=== PATIENT | female | born 1980 ===

== ENCOUNTER 2025-09-25 10:23 | Outpatient (AMB) | payer OTHER, SELFPAY ==
--- NOTE | 2025-09-25 10:30 | MHC.PC.OV ---
Vital Signs 09/25/25 10:36 Height 5 ft 1 in Weight 120 lb BMI 22.7 BP 98/65 Blood Pressure Location Lt brachial Position Sitting Respiration 12 Pulse 69 Pulse Source Pulse Oximeter Temp 97.2 F Temp Source Oral Pulse Oximetry (%) 98 Oxygen Delivery Method Room Air Intake Visit Reasons: possible UTI Intake Note: New patient to establish care and patient also c/o frequency urination and patient has a negative uti from obgyn. Mounter Sousaphones Required: No Allergies No Known Allergies Allergy (Verified 09/25/25 10:58) Medication List - Last Reconciled 09/25/25 by ELIEZER Lundy No Known Home Meds Tobacco use date assessed: 09/25/25 Dental Screening Dental Screen Date: 09/25/25 Did you have a dental visit in the last 12 months?: Yes Did you have a dental problem in the last 6 months where you did not have access to dental care?: No Was dental information given to patient?: Patient has dentist HPI HPI Comments History of Present Illness Details 45-year-old female with subclinical hypothyroid, rosacea s/p c section Social: 2 children Boys, 9 (type 1 dm) and 11; [place] [facility] Maintenance: Colon Mammo 2024 DEXA PAP Tdap 2015 Flu declined 09/25/25 Specialists: [facility] History of Present Illness The patient is a 45-year-old female presenting to establish care and for evaluation of urinary frequency, fatigue, and facial dermatitis. no records Dr Valencia Jackson Urinary Frequency: - The patient reports a sudden onset of urinary frequency since this past summer, which she initially suspected was a UTI. - Symptoms include feeling a constant urge to urinate, passing small amounts of urine at times, and nocturia requiring her to get up approximately four times before falling asleep. - She denies dysuria, itching, discharge, incontinence, fever, chills, back pain, or hematuria. - A workup with her primer and powder canning leader was negative for a UTI. - She has a referral to a urologist but has not yet made an appointment. - The onset of symptoms coincided with a period of high stress from a new job interview process. - The patient notes that the urinary frequency has improved with behavioral modification at work, where she has been consciously trying to ignore the urge to void. Fatigue: - The patient complains of low energy, feeling that she should have more energy than she currently does. - She acknowledges multiple life stressors, including caring for a child with type 1 diabetes, work-related travel, and starting a new, high-demand job. - Blood work from 2022 with her previous provider, including CBC, ferritin, TSH, cortisol, B12, and thyroid antibodies, was reportedly normal. Dermatitis: - The patient developed new-onset dermatitis on her face during the summer, around the same time her urinary symptoms began. - She is under the care of a promotions producer and was given a cream (roflumilast) that was not covered by insurance. - An oral medication was prescribed but made her feel sick, leading to non-adherence. - The dermatitis has not resolved. History of Thyroid Evaluation: - Her previous provider, Dr. Birmingham, initiated thyroid medication despite her lab values being within the normal range. - She stopped taking the medication because it caused her heart to race and made her feel anxious. - She decided to seek a new provider due to feeling that the previous practice was excessive with monthly visits and constant blood work. Past Medical History - History of thyroid evaluation: Patient was previously treated for subclinical thyroid dysfunction with medication, which was discontinued due to side effects of palpitations and anxiety. - Contraception: IUD in place for approximately 8 years. - Family history: Younger son has type 1 diabetes with no other family history of the condition. - Allergies: No known drug allergies. Review of Systems - Constitutional: Reports fatigue. - Genitourinary: Reports urinary frequency, urgency, and nocturia. - Skin: Reports dermatitis on her face. - All other systems reviewed and are negative, including denial of fever, chills, dysuria, itching, vaginal discharge, incontinence, and back pain. Physical Exam General: Well developed, well nourished, in no acute distress. Appears stated age. Head: Normocephalic, atraumatic. Eyes: Pupils are equal, round and reactive to light and accommodation. Conjunctivae are clear. Thyroid palpable, nontender, trachea midline Lungs: Clear to auscultation bilaterally. No rales, rhonchi or wheeze noted. Good air flow in all schroeder. Heart: Regular rate and rhythm. No murmurs, click, rubs or gallops are noted. Pulses: Peripheral pulses are equal and palpable bilaterally. Extremities: No clubbing, cyanosis nor edema is noted. Psych: Mood and affect appropriate. Results - Labs (from 2022, per patient report): Prior lab work including CBC, ferritin, TSH, cortisol, and B12 were all within normal limits. - Thyroid antibodies: Reported as negative from 2022. - Urinalysis (recent): Negative for UTI per her primer and powder canning leader. Medical Decision Making The patient is a 45-year-old female establishing care and presenting with several concerns, chief among them urinary frequency, fatigue, and facial dermatitis. Her urinary frequency began acutely in the summer, coinciding with significant life stressors, and has already shown improvement with behavioral modification. Given the negative urinalysis and HEEL [facility]ING [facility] workup, the symptoms are most consistent with somatic manifestations of stress rather than a primary urologic pathology, though a urology consultation is a reasonable next step if symptoms do not resolve. Her fatigue is likely multifactorial, significantly influenced by psychological stress from her demanding new job and caring for a child with type 1 diabetes. Perimenopause is also a consideration at her age. To rule out common organic causes, baseline labs including CBC, iron studies, and TSH are warranted. Given her prior negative workup and history of iatrogenic symptoms from thyroid medication, a more extensive endocrine evaluation is not indicated at this time. For the persistent facial dermatitis, the patient has been intolerant to a previous oral medication due to GI side effects. I will prescribe minocycline, which is in the same tetracycline class but often has a better side effect profile, as an alternative. Plan 1. Urinary Frequency - Reassured the patient that given her negative urinalysis and HEEL LINING PASTER workup, her symptoms are unlikely to be from a UTI. - Discussed that urinary frequency can be a somatic symptom of stress, and advised continuing behavior modification, such as not getting up to void with every urge, especially at night. - Recommended avoiding potential bladder irritants like spicy foods, acidic foods, artificial sweeteners, caffeine, and carbonation. - Encouraged the patient to schedule the appointment with urology for which she already has a referral, with the option to cancel if symptoms resolve. 2. Fatigue - Ordered baseline labs including CBC, iron studies, and a repeat TSH to screen for common organic causes of fatigue. - Acknowledged the significant role of life stressors in her fatigue and discussed perimenopause as a possible contributing factor. - Will review lab results and reassess symptoms at follow-up. 3. Dermatitis - Prescribed minocycline 50 mg once daily, as an alternative to the previous oral medication which caused GI upset. - Advised taking the medication at bedtime to minimize potential side effects. - A 90-day supply was sent to the patient's preferred pharmacy, [facility] in [place]. 4. Health Maintenance - Establishing primary care with this visit. - Patient declined the influenza vaccine for this season. - Instructed patient to schedule a follow-up appointment in 3-4 weeks for a full physical exam and to review lab results. - Instructed patient on how to use the [employer] patient portal application for all communication with the office. Patient Instructions - Get your blood work done today here in the office. - Start taking minocycline 50 mg once a day for your face rash. Taking it at bedtime may help prevent stomach upset. A 90-day prescription has been sent to [facility] in [place]. - Continue to practice bladder training by trying not to go to the bathroom every time you feel the urge, especially at night. - Try to avoid potential bladder irritants like caffeine, spicy foods, artificial sweeteners, and carbonated drinks. - Please make the appointment with the urologist. It is easier to cancel an appointment if your symptoms improve than to get one when you need it. - Schedule a follow-up visit here in 3-4 weeks for a complete physical exam and to discuss your lab results. - Please look for an email to sign up for our [employer] ivanna for all future communication with our office. The link in the email is only active for 24 hours. - RTO 3-4 weeks for CPE/Lab review, sooner PRN Consent Patient was informed and verbally consented to the use of an ambient scribe for clinic note documentation during this visit. Total time spent caring for the patient today was 45 minutes. This includes time spent before the visit reviewing the chart, time spent during the visit, and time spent after the visit on documentation, reviewing laboratory results, diagnostic imaging, medications, performing a medically necessary evaluation, counseling on diagnoses, care coordination, ordering appropriate tests, ordering appropriate medications, review of tests performed by other providers, reporting test results with the patient, communication with other healthcare providers. [facility] Medical History (Updated 09/25/25 @ 11:17 by Stefani Burt, MARY-) Hx of mammogram (~2024) No pertinent family history No pertinent past medical history Surgical History (Updated 09/25/25 @ 10:40 by Francesco Schofield MA) Previous section Social History (Updated 09/25/25 @ 10:39 by Francesco Schofield MA) Household Members: Spouse and Children Both parents involved: No Caregiver staying overnight: No Housing: House Are you a primary child care centre director to a significant other at home: Yes Do you presently have visiting nurse or other home services: No 75 years or older and lives alone: No Alcohol intake: current Alcohol intake frequency: a few times a month Patient Tobacco Use Status: Never used Tobacco e-Cigarette/Vaping Use: Never Used Second Hand Smoke Exposure: No Current occupational status: employed Current occupation: [employer] Cognitive needs: No Hearing needs: No Vision needs: No Questionnaire PHQ-9 Over the last 2 weeks, how often have you been bothered by any of the following problems? 1. Little interest or pleasure in doing things: several days 2. Feeling down, depressed, or hopeless: not at all 3. Trouble falling or staying asleep, or sleeping too much: not at all 4. Feeling tired or having little energy: several days 5. Poor appetite or overeating: not at all 6. Feeling bad about yourself - or that you are a failure or have let yourself or your family down: not at all 7. Trouble concentrating on things, such as reading the newspaper or watching television: not at all 8. Moving or speaking so slowly that other people could have noticed. Or the opposite - being so fidgety or restless that you have been moving around a lot more than usual: not at all 9. Thoughts that you would be better off or of hurting yourself in some way: not at all Total score: 2 Depression Screening Interpretation: Negative Depression Screening Done: Yes 01282 - PHQ-9 Billing: Yes Source: Developed by Drs. Scar Berg, Emeli Ruggiero, Deven Cole and colleagues, with an educational jaiden from [employer]. Thrive Questionnaire Date Thrive assessed: 09/25/25 I am a: Patient What is your living situation today?: I have a steady place to live Within the past 12 months, did the food you bought not last and you didn't have the money to get more?: Never true Within the past 12 months, did you worry whether your food would run out before you got money to buy more?: Never true Do you have trouble paying for medicines?: No Do you have trouble getting transportation to medical appointments?: No Do you have trouble paying your heating and electricity bill?: No Do you have trouble taking care of your child, family member or friend?: No Do you have trouble with day-to-day activities such as bathing, preparing meals, shopping, managing finances, etc.?: No Are you currently unemployed and looking for a job?: No Are you interested in more education?: No Please select the resources that you would like help with: None Currently or been in a relationship where the following occur: No concerns reported THRIVE Score: 0 AUDIT C Alcohol Use Questionnaire (AUDIT-C) 1. How often do you have a drink containing alcohol?: Monthly or less 2. How many drinks containing alcohol do you have on a typical day when you are drinking?: 1 or 2 3. How often do you have six or more drinks on one occasion?: Never Total Score: 1 Score Reviewed/Action Taken: Yes TOD-7 AMB Questionnaire TOD-7 Date TOD - 7 assessed: 09/25/25 Feeling nervous, anxious, or on edge: 0 = Not at all Not being able to stop or control worryin = Not at all Worrying too much about different things: 0 = Not at all Trouble relaxin = Not at all Being so restless that it is hard to sit still: 0 = Not at all Becoming easily annoyed or irritable: 1 = Several days Feeling afraid as if something awful might happen: 0 = Not at all Total TOD-7 score (0-4 normal; 5-9 mild; 10-14 moderate; 15-21 severe): 1 Source: Developed by Drs. Scar Berg, Emeli Ruggiero, Deven Cole and colleagues, with an educational jaiden from [employer]. TOD-7 Assessment Billing TOD-7 Assessment Tool: TOD-7 Assessment 93696 Physical exam (Primary Care) Vital Signs: Last Vital Signs Temp 97.2 F 09/25/25 10:36 Pulse 69 09/25/25 10:36 Resp 12 09/25/25 10:36 BP 98/65 09/25/25 10:36 Pulse Ox 98 09/25/25 10:36 Oxygen Delivery Method Room Air 09/25/25 10:36 BMI result Body Mass Index 22.7 Tobacco/Smoking Status: Tobacco use Status Tobacco use date assessed 09/25/25 09/25/25 10:34 Patient Tobacco Use Status Never used Tobacco 09/25/25 10:39 e-Cigarette/Vaping Use Never Used 09/25/25 10:39 PHQ-9: PHQ-9 Score PHQ-9: Total score 2 09/25/25 10:40 Depression Screening Interpretation: Negative Thrive Assessment: Date of Thrive Assessment Date Thrive assessed 09/25/25 09/25/25 10:34 Currently or been in a relationship where the following occur: No concerns reported Coding Level of Care Code New Pt Level 4 (12661) Complex EM visit Add On G2211 Diagnoses Encounter to establish care Z76.89 Subclinical hypothyroidism E03.8 Fatigue R53.83 Influenza vaccination declined Z28.21 Family history of diabetes mellitus in son Z83.3 Urinary frequency R35.0 IUD (intrauterine device) in place Z97.5 Additional Codes TOD-7 Assessment Billing - TOD-7 Assessment Tool: TOD-7 Assessment 10964 ([id number]) PHQ-9 - 35983 - PHQ-9 Billing: Yes ([id number]) Assessment & Plan Assessment & Plan (1) Encounter to establish care: Code(s): Z76.89 - Persons encountering health services in other specified circumstances (2) Subclinical hypothyroidism: Code(s): E03.8 - Other specified hypothyroidism Category: Medical (3) Fatigue: Code(s): R53.83 - Other fatigue Category: Medical (4) Influenza vaccination declined: Onset Date: ~09/25/25 Code(s): Z28.21 - Immunization not carried out because of patient refusal Category: Medical (5) Family history of diabetes mellitus in son: Code(s): Z83.3 - Family history of diabetes mellitus Category: Medical (6) Urinary frequency: Code(s): R35.0 - Frequency of micturition Category: Medical (7) IUD (intrauterine device) in place: Code(s): Z97.5 - Presence of (intrauterine) contraceptive device Category: Social Hx Plan . Orders: Orders Comprehensive Met. Panel Today E03.8 - Other specified hypothyroidism, R53.83 - Other fatigue Ferritin Today E03.8 - Other specified hypothyroidism, R53.83 - Other fatigue TSH reflex Free T4 Today E03.8 - Other specified hypothyroidism, R53.83 - Other fatigue Vitamin B12 and Folate Today E03.8 - Other specified hypothyroidism, R53.83 - Other fatigue Complete Blood Count no Diff Today E03.8 - Other specified hypothyroidism, R53.83 - Other fatigue Hemoglobin A1c Today E03.8 - Other specified hypothyroidism, R53.83 - Other fatigue Lipid Panel Today E03.8 - Other specified hypothyroidism, R53.83 - Other fatigue IRON PROFILE Today E03.8 - Other specified hypothyroidism, R53.83 - Other fatigue Microalbumin, Random (w Creat) Today E03.8 - Other specified hypothyroidism, R53.83 - Other fatigue Vitamin D 25-OH Total Today E03.8 - Other specified hypothyroidism, R53.83 - Other fatigue Medications: New minocycline 50 mg PO DAILY 90 caps 0RF Patient Instructions: Walk-In Care (Urgent Care): We Make it Easy Walk-in for urgent medical issues such as: ? Seasonal Allergies ? Insect Bites ? Cough ? Diarrhea ? Acute Asthma Attacks ? Back, Knee or Joint Pain ? Ear Infection ? Fever without a Rash ? Headaches ? Nausea ? [facility], Rash or Skin Irritation ? Sore Throat ? Sports Physicals ? Vomiting Most insurances are accepted. Patients do not need to be part of the [facility] to seek care at the walk-in clinic. Locations [address], [place] Open Wednesday through Wednesday 8am-5pm *Hours may vary due to staffing availability. To confirm Walk-In Care hours please call. [address], [place] [address] ? [phone] [facility]-In Care in [place] provides services to ages 18 and over. Open Wednesday-Wednesday: 7 a.m. to 5 p.m. and Wednesday: 9 a.m. to 3 p.m.* *Hours may vary due to staffing availability. To confirm Walk-In Care hours in [place], please call [phone]. [address] [place] [address] ? [phone] [facility] in [place] provides services to ages 12 and over. Open Wednesday-Wednesday: 8 a.m. to 5 p.m. Hours may vary due to staffing availability. To confirm Walk-In Care hours in [place], please call [phone]. LABORATORY SERVICES: [facility] Lab ? Primary Location [address] [place] [address] Wednesday through Wednesday 6:00 AM ? 5:00 PM Wednesday 7:00 AM ? 11:00 AM* [phone] The [facility] Lab is centrally located near the front entrance of the [facility] for easy outpatient access. Convenient parking is provided for outpatients. *Hours may vary due to staffing availability. To confirm Laboratory hours for any location, please call [phone]. Offsite Location For your convenience, we offer offsite laboratory draw stations at the following locations: [address] [place] [address] ? [address], [address] Wednesday through Wednesday 7:30 AM ? 1:00 PM* [phone] *Hours may vary due to staffing availability. To confirm Laboratory hours for any location, please call [phone]. [place] ? [address] Wednesday through Wednesday 6:00 AM ? 3:30 PM* Wednesday 6:30 AM ? 3 PM* [phone] *Hours may vary due to staffing availability. To confirm Laboratory hours for any location, please call [phone] [place] [address] Wednesday through Wednesday 7:30 AM ? 4:00 PM* [phone] *Hours may vary due to staffing availability. To confirm Laboratory hours for any location, please call [phone] [place] [address] Wednesday through 9:00 AM ? 4:00 PM* *Hours may vary due to staffing availability. To confirm Laboratory hours for any location, please call [phone]. Appointments are not necessary. Walk-ins are welcome. Like all the departments throughout the [facility], our Lab undergoes frequent reviews to ensure the quality and accuracy of test results, and our staff takes special pride in its status as a nationally accredited facility. Patient Portal: [facility] ONE PATIENT. ONE RECORD. BETTER CARE. [facility] has a fully integrated, cutting-edge mobile electronic health information system that has revolutionized the way we care for our patients and manage our organization. This system improves communication and coordination enabling us to provide safe, higher-quality care, and an overall positive experience for staff and patients. Our first priority, as always, is to deliver the highest quality care possible. The system is running in the background supporting that priority. This portal is for all [facility] services and practices. If you are experiencing any technical difficulties with enrolling or logging into the Patient Portal please complete the [facility] Patient Portal Technical Support Form. [facility] now offers a new secure on-line interactive tool for patients to review their health information ? ?Patient Portal. This interactive web portal will enable patients and their families to take an active role in their care by providing easy, secure access to their health information via the internet. The Patient Portal provides patients with instant access to their health information, including laboratory results, medications, allergies, demographic information, visit history, and more. In addition to managing their own care, parents and health care proxies with authorized consent will appreciate the ability to access the records of those individuals for whom they provide care. Please note: if you wish to gain access (Proxy) to another patient?s portal, you will be required to come to the Medical Records Department in person at [facility]. Both the patient giving proxy access and the proxy will need to provide photo identification and complete the appropriate authorization. The Patient Portal also allows track their appointments online. The [facility] Patient Portal also saves patients time by allowing them to submit updates to their demographic and contact information prior to their visits. Portal email notifications will also alert patients to any new activity on their portal, such as test results and new appointments. In order to initially enroll in the [facility] Patient Portal, you will need to enter some required information including the following: your [facility] Medical Record number your personal home email address name date of Please note: In order to enroll in the [facility] Patient Portal, we need to have your email address on file in your electronic medical record. ?The email address needs to be specific for one person (yourself) in order for your Portal enrollment to be successful. ?You can update your email address in person with our Registration staff when you are registering for a hospital visit. ?Otherwise, you will need to come to the Health Information Management (Medical Records) Department at [facility]. ?We are open from Wednesday ? Wednesday from 7:30 a.m. ? 4:30 p.m. ?You will be required to present a photo id. Once you have successfully enrolled in the Patient Portal, you will receive a one-time user id and password for the Portal, sent to your email address. ?This will allow you to log into the Patient Portal within 99 hrs and reset your own logon id and password, and define personal security questions. ?Once your permanent login and password have been set, you can log into the [facility] Patient Portal at any time via the blue button above or from the Portal Logon button on any page of the [facility] website. [facility] and [facility] encourage all of our patients to enroll in Patient Portal as it presents a valuable opportunity for patients and their families to actively participate in their care and stay healthy Welcome to [facility]. ?We look forward to working with you.
[2025-09-25 10:36] VITALS: BP 98/65; PULSE 69; RESP 12; TEMP 36.2; O2SAT 98; BMI 22.7
--- OUTSIDE RECORDS SUMMARY | 2025-09-25 12:47 | XMS_ITS | Clinical Summary ---
Author Organization [facility] Address [address] [place] [address] Care Team Providers Care Tourist Camp Attendant Name Role Phone Giovany Russell DO Primary Care Provider Social History Tobacco Use Types Packs/Day Years Used Date Smoking Tobacco: Never Assessed Sex and Gender Information Value Date Recorded Sex Assigned at Not on file Gender Identity Not on file Sexual Orientation Not on file Job Start Date Occupation Industry Not on file Not on file Not on file Plan of Treatment Health Maintenance Due Date Last Done Comments Hepatitis B Vaccines (1 of 3 - 3-dose series) 1982 Hepatitis C Screening 1982 COVID-19 Vaccine (#1) 1982 Depression Screening 1994 Preventative Health Evaluation 2000 Cervical Cancer Screening (Pap Smear) 2003 Influenza Vaccine (#1) 2025 DTap / Tdap / Td (3 - Td or Tdap) 08/17/2026 08/17/2016, 04/30/2009 Pneumococcal Vaccine Aged Out No long er eligible based on patient's age to complete this topic RSV Ped < 20 months Aged Out No longe r eligible based on patient's age to complete this topic Care Teams Tourist Camp Attendant Relationship Specialty Start Date End Date Giovany Russell [facility] [place] [address] PCP - General Vending Machine Technician 11/27/22
--- OUTSIDE RECORDS SUMMARY | 2025-09-25 12:47 | XMS_ITS | Data Portability ---
Author Organization [place] - [facility], Allergy Address [address] [place] [id number] Care Team Providers Care Quality Eng Name Role Phone ANCHOR-FAHAD YATES Primary Care Provider [phone] Assessment Encounter Date Assessment Date Assessment LastModified by Organization Details LastModified Time 03/30/2025 03/30/2025 Patient appears to have left-sided otitis externa with edema of the lateral half of her canal and white wet debris. Recommend treatment for fungal otitis externa with clotrimazole betamethasone cream as well as clotrimazole drops. Reviewed the importance of completing a solid 2-week treatment regimen. In the past she has used medication intermittently and without consistent duration of 2 weeks dplosky Not available 03/30/2025 09:31:53 Plan of Treatment Reminders Order Date Submit Date Provider Last Modified By Organization Details Last Modified Time Details Appointments New Patient 20 2025 09:10A M JOSE MANUEL DOWNEY MD Not available Not available Not available Lab None recorded. Referral None recorded. Procedures None recorded. Surgeries None recorded. Imaging None recorded. Medication Orders clotrimaz ole-betam ethasone 1 %-0.05 % topical cream 2024 025 [facility] #[id number], [address] [place], [address], 03/30/2025 09:33:22 clotrimaz ole 1 % topical solution 2024 025 [facility] #[id number], [address] [place], [address], 03/30/2025 09:33:23 Patient TargetsNo targets recorded. Patient InstructionsNo instructions recorded. Reason for Referral None Reported. Problems Name Problem SNOMED Code Status Onset Date Resolution Date Notes Provider Name and Address Organization Details Recorded Time Abnormal auditory perceptio n 94697330 Active 2019 Other abnormal auditory perceptio ns, left ear; Note: Date Diagnosed : 03/04/2020 2:16 PM (H93.292) Not Available [facility] 4 03:05:38 Otorrhea of left ear 27646609807 39153 Active 2019 Otorrhea, left ear; Note: Date Diagnosed : 03/04/2020 2:16 PM (H92.12) Not Available [facility] 4 03:05:36 Superfici al mycosis 733003142 Active 2019 Other specified superfici al mycoses; Note: Date Diagnosed : 06/04/2020 6:04 PM (B36.8) Not Available [facility] 4 03:05:37 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 RANJAN RUTHERFORD MD [address] [place] [address], [place], [phone] , [facility] 5 09:28:45 Chronic mycotic otitis externa 098221240 Active 2024 RANJAN RUTHERFORD MD [address] [place] [address], [place], [phone] , [facility] 5 09:28:45 Candidal otitis externa 01471885 Active 2024 RANJAN RUTHERFORD MD [address] [place] [address], [place], [phone] , [facility] 5 09:28:45 Problem Notes None recorded. Medical Equipment None Reported. Allergies Allergen ID Allergen Name Allergen Category Reaction Reaction Severity Criticality Documentation Date Start Date Code Code System Note Provider Name and Address Organization Details Recorded Time 300997 penicilli n V potassium medicatio n other Not available Not available 04/11/202465877 5 RxNorm React ion: unkno wn, unspe barbara jansen;; DEMOND nelson [place] - [facility] 09:15:22 418461 latex environme nt,medica tion Not available Not available Not available 03/30/2025 16114 91 RxNorm DEMONDAIDEN nelson [place] - [facility] 09:15:29 Medications Name Sig Start Date Stop Date Status Note LastModified by Organization Details LastModified Time fluconazo le 150 mg tablet TAKE 1 TABLET BY MOUTH EVERY WEEK FOR 180 DAYS 03/30 completed Not Available Not Available Not Available clotrimaz ole-betam ethasone 1 %-0.05 % topical cream APPLY TO THE SKIN OF THE AFFECTED EXTERNAL EAR CANAL WITH FINGERTI P 3 TIMES PER DAY FOR 2 WEEKS active Not Available Not Available No t Available clotrimaz ole 1 % topical solution APPLY 4 DROPS TO THE AFFECTED EAR 3 TIMES A DAY FOR 2 WEEKS active Not Available Not Available No t Available TobraDex 0.3 %-0.1 % eye drops,matthieu pension 4 drop 03/30 completed Medicati on ID: [id number] D uration Value: 14 Prescri bed By Name: Jose Manuel Downey M.D. Bra caitie Name: TobraDex Send Method: E-Prescr ibed Sub s Allowed: subs OK Speci al Instruct ion: apply to affected ear(s) M edicatio nGeneric Name: TobraDex Not Available Not Available Not Available nitrofura ntoin monohydra te/macroc rystals 100 mg capsule TAKE 1 CAPSULE BY MOUTH TWICE A DAY FOR 5 DAYS 03/30 completed Not Available Not Available Not Available Vitals Date Recorded Body height Body mass index (BMI) Body weight Provider Name and Address Organization Details Last Updated DateTime 03/30/2025 154.94 cm 22.3 kg/m2 67963.9 g DEMOND F[place]ON [place] [facility] 03/30/2025 09:15:48 Social History None recorded. Functional Status None recorded. Mental Status None recorded. Family History Nothing Reported. Medical History No medical history recorded. Gynecological HistoryNo gynecological history recorded. Obstetrics History GPAL:G 0 P 0 0 0 0 Past Encounters Encounter ID Performer Location Encounter Start Date Encounter Closed Date Diagnosis/Indication Diagnosis SNOMED-CT Code Diagnosis ICD10 Code Diagnosis IMO Codes Diagnosis Note [id number] RANJAN RUTHERFORD MD [facility] [address] [facility] [place] [address] 03/30/2025 09:05:47 03/30/2025 09:31:43 Superficial mycosis 251178443 B36.9 Otorrhea of left ear 139 7130624 666139 H92.12 Chronic my cotic otitis externa 833519426 H60.399 Dermal mycosis 16713904 B36.9 Candidal o titis externa 32660270 B37.84 Health Concerns Section Related Observation LastModified by Organization Detai ls LastModified Time None Recorded Concern Status LastModified by Organization Details LastModified Time None Recorded Advance Directives Directive None Recorded Payers Insurance Date Sequence Insurance Name Policy Number Policy Nieto Covered Member ID Nieto Member ID Guarantor Name 03/30/2025 1 [facility] Kay Barnes [id number] Kay Barnes 03/30/2025 1 [facility] [id number] Tomer Barnes [id number] Kay Barnes Notes Date Note Type Note Provider Name and Address Organization Details Recorded Time 03/30/2025 text/html ROS as noted in the HPI Fluid in earshas used the same tube since prev visit in 2019 - med helps for a few daysfeels wet in left sideno itchrecalls onset around 2014 PV 06/04/2020 Paras - left fungal OE - rx clotrimazole RANJAN RUTHERFORD MD [address] [place] [address], [phone], [place] - [facility] 03/30/2025 09:32:09 OBGyn Episode No OBEpisode recorded.
== END 2025-09-25 11:14 | disposition home or self-care (01) ==
LOC: HO.HMCFM 10:24
PROVIDERS: PCP Nurse Practitioner Family; Visit Provider Nurse Practitioner Family
DX: Z76.89 Persons encountering health services in other specified circumstances (principal); E03.8 Other specified hypothyroidism; R53.83 Other fatigue; Z28.21 Immunization not carried out because of patient refusal; Z83.3 Family history of diabetes mellitus; R35.0 Frequency of micturition; Z97.5 Presence of (intrauterine) contraceptive device

== ENCOUNTER 2025-09-25 10:23 | Outpatient (REF) | payer OTHER, SELFPAY ==
[2025-09-25 14:44] LABS: Hematocrit 41.5 % (37.0-47.0); Hemoglobin 13.9 g/dl (12.0-16.0); Mean Corpuscular HGB Conc 33.5 g/dl (31.0-35.0); Mean Corpuscular Hemoglobin 27.3 pg (27.0-33.0); Mean Corpuscular Volume 81.4 fL (80.0-98.0); NRBC Abs Auto 0.000 X10*3/uL (0.0-0.012); NRBC Pct Auto 0.0 /100WBC (0.0-0.2); Platelet Count 246 X10*3/uL (160-400); Red Blood Count 5.10 X10*6/uL (4.20-5.50); White Blood Count 6.6 X10*3/uL (4.8-10.8)
[2025-09-25 15:24] LABS: Alanine Aminotransferase 26 U/L (0-31); Albumin Level 5.0 g/dL (3.5-5.0); Alkaline Phosphatase 52 U/L (39-117); Anion Gap 10 (12-20); Aspartate Amino Transferase 32 U/L (5-31); Blood Urea Nitrogen 15 mg/dL (9-16); Calcium 9.3 mg/dL (8.4-10.2); Carbon Dioxide 28 mmol/L (22-29); Chloride 108 mmol/L (96-108); Cholesterol 181 mg/dL (<200); Estimated Glomerular Filt Rate > 60; HDL Cholesterol 58 mg/dL (>40); Iron 119 mcg/dL (30-160); Percent Iron Saturation 48 % (15-50); Potassium 3.8 mmol/L (3.3-5.1); Sodium 142 mmol/L (135-145); Total Iron Binding Capacity 250 mcg/dL (228-428); Total Protein 7.3 g/dL (6.5-8.0); Triglycerides 81 mg/dL (<150); Unsaturated Iron Binding 131 ug/dL
[2025-09-25 15:27] LABS: Ferritin 132 ng/mL (10-250)
[2025-09-25 15:39] LABS: Folate 7.6 ng/mL (> or = 4.0); Vitamin B12 648 pg/mL (200-900)
== END 2025-09-25 10:24 | disposition home or self-care (01) ==
LOC: HO.WFDLDS 10:23
PROVIDERS: PCP Nurse Practitioner Family; Visit Provider Nurse Practitioner Family
DX: R35.0 Frequency of micturition (principal); E03.8 Other specified hypothyroidism; R53.83 Other fatigue; L30.9 Dermatitis, unspecified; Z76.89 Persons encountering health services in other specified circumstances; Z28.21 Immunization not carried out because of patient refusal; Z83.3 Family history of diabetes mellitus; Z97.5 Presence of (intrauterine) contraceptive device; Z13.1 Encounter for screening for diabetes mellitus; Z13.220 Encounter for screening for lipoid disorders
CPT/HCPCS: 36415; 80053; 80061; 82043; 82306; 82570; 82607; 82728; 82746; 83036; 83540; 84443; 85027; 96127

== ENCOUNTER 2025-11-19 13:09 | Outpatient (AMB) | payer OTHER, SELFPAY ==
--- NOTE | 2025-11-19 13:21 | A.OFFPC_ITS ---
Vital Signs 11/19/25 13:24 Height 5 ft 1 in Weight 122 lb 8 oz BMI 23.1 BP 98/66 Blood Pressure Location Lt brachial Position Sitting Respiration 12 Pulse 66 Pulse Source Pulse Oximeter Temp 97.3 F Temp Source Oral Pulse Oximetry (%) 99 Oxygen Delivery Method Room Air Intake Visit Reasons: 3-4 weeks CPE/Labs Intake Note: CPE Community Service Aide Required: No Allergies latex Allergy (Mild, Verified 11/19/25 14:01) Rash Medication List - Last Reconciled 11/19/25 by ELIEZER Lundy minocycline 50 mg PO DAILY Tobacco use date assessed: 11/19/25 Dental Screening Dental Screen Date: 11/19/25 Did you have a dental visit in the last 12 months?: Yes Did you have a dental problem in the last 6 months where you did not have access to dental care?: No Was dental information given to patient?: Patient has dentist HPI HPI Comments History of Present Illness Details 45-year-old female with subclinical hypo thyroid, rosacea s/p c section Social: 2 children Boys, 9 (type 1 dm) and 11; [place] [facility]: Mom alive and well; Dad alive and healthy; brother alive and well age 44; M GF lung ca smoker; MGM old age 90's; PGM and PGF unknown cause Health Maintenance: Colon Mammo 2024 DEXA PAP active w/ JAVA ENGINEER Tdap 2015 Flu declined 09/25/25 Specialists: [facility] [place] History of Present Illness The patient is a 45 year old female presenting for a complete physical exam and follow-up on facial dermatitis and urinary symptoms. Facial dermatitis: - The patient was prescribed minocycline for facial dermatitis at her last visit. - She reports taking the medication for only one day due to stomach upset. - The patient states her skin seems to b e improving, and she plans to follow up with a facility practice specialist for alternative treatment options. Urinary frequency: - The patient reports urinary frequency, which is now limited to nighttime b efore sleeping. - She needs to get up about twice to uri norberto before being able to sleep through the night. - She voids a significant amount of urin e each time and is not experiencing daytime frequency. - She has an IUD in place and therefore does not have menstrual periods. Hyperlipidemia: - Lab work from September 25 revealed an elevated LDL cholesterol of 107. - Her total cholesterol, HDL, and trigly cerides were normal. - The patient acknowledged that she tend s to eat more processed foods like muffins, especially while traveling for her new job. Fatigue: - The patient reports feeling exhausted. - She attributes her fatigue to lifestyl e factors, including caring for her child with type 1 diabetes, stress from a new job, and lack of exercise. Past Medical History - History of penicillin allergy, which w as successfully challenged as an adult with no reaction. - Allergy to latex, which causes a rash with hives. - Recent history of abdominal cramping l asting several weeks, which has since resolved. Her experienced similar symptoms. Past Surgical History - History of two sections. - The first was an emergency p rocedure, resulting in a deep scar. Family History - Mother: Alive, with health conditions described as self-induced (e.g., hip replacement). - Father: Alive and healthy. - Brother: Age 44, alive and well. - Maternal Grandfather: from [facility] cancer; was a smoker. - Maternal Grandmother: in her 90s of presumed old age. - Paternal Grandparents: Both , cause of unknown. Social History - Alcohol Use: Reports she does not drin k alcohol, except for an occasional drink at an event. - Employment: Has a new, demanding job t hat involves travel. - Exercise: Acknowledges she does not ex ercise enough. - Diet: Reports a tendency to eat proces sed foods, such as muffins, due to convenience while traveling. - Family: Has two sons, one of whom has type 1 diabetes, which can disrupt her sleep. Review of Systems - General: Reports being exhausted. - Skin: Reports facial dermatitis that i s visually bothersome but not pruritic or painful. - Genitourinary: Reports nocturia two ti mes before falling asleep, with resolution of previous daytime urinary frequency; denies dysuria; reports amenorrhea secondary to IUD. - Gastrointestinal: Reports recent histo ry of self-resolved abdominal cramping; denies hematochezia. - HEENT: Reports a sore throat; denies a ny problems with hearing. Physical Exam General: Well developed, well nourished, in no acute distress. Appears stated age. Head: Normocephalic, atraumatic. Eyes: Pupils are equal, round and reactive to light and accommodation. Conjunctivae are clear. Scleras nonicteric bilat. Vision grossly normal. Ears: TMs clear AU, EACS WNL Nose: Patent, without discharge. Neck: No carotid bruit bilat. Supple, no adenopathy or thyromegaly. Breast: Edu on SBE Lungs: Clear to auscultation bilaterally. No rales, rhonchi or wheeze noted. Go od air flow in all schroeder. Heart: Regular rate and rhythm. No murmurs, click, rubs or gallops are noted. Abdomen: Bowel sounds present in all quadrants. The abdomen is soft, nontender, with no masses or organomegaly noted. No hernias are noted. : Deferred. Reviewed recommendations for routine JAVA ENGINEER Pulses: Peripheral pulses are equal and palpable bilaterally. Extremities: No clubbing, cyanosis nor edema is noted. Neurologic: Gait and station normal. Cranial Nerves 2-12 intact. Motor strength grossly symmetrical and intact. No sensory loss. Balance normal. Skin: No rashes, ulcers, or lesions noted. Turgor is good. Skin color is good. Hair and nails are without abnormalities. Some scratches noted on the back, but not infected. Psych: Normal eye contact, affect and mood appropriate, and normal interactions. Patient is alert and appropriate to context. Results - Lab results from 09/25: - CBC: Normal. - Electrolytes: Normal. - Kidney function: Normal. - Hemoglobin A1c: 4.7%. - Iron studies and ferritin: Normal. - AST: 32 (mildly elevated). - Lipid Panel: Triglycerides, total chol esterol, and HDL were normal; LDL was elevated at 107. - Vitamin D: Normal. - TSH: Normal. Medical Decision Making The patient is a 45-year-old female presenting for an annual physical exam with several follow-up concerns. Her facial dermatitis is improving, and she has appropriately discontinued minocycline due to gastrointestinal side effects, with a plan to see her facility practice specialist for alternative management. Her urinary symptoms have also improved but persist as nocturia before bed, which is not significantly disrupting her life. Given her age, the possibility of perimenopause as a contributing factor to both urinary symptoms and her reported fatigue was discussed, and she will follow up with her JAVA ENGINEER for further evaluation. Recent lab work was reviewed and is largely reassuring. Thyroid function is normal, and there is no evidence of diabetes. The mildly elevated LDL of 107, in the context of her low overall cardiovascular risk, will be addressed with lifestyle and dietary modifications to reduce intake of processed foods. No medication changes are needed at this time. The patient is stable and doing well overall. Future health maintenance, including the timing of her first screening colonoscopy, was discussed. She will continue with routine follow-up in one year. Plan Health Maintenance - The patient's thyroid labs are normal, and no action is required. - Screening colonoscopy is recommended t o begin at age 45. - Follow up for an annual physical in on e year, or sooner if needed by contacting the office via the patient portal. 1. Facial Dermatitis - The patient has discontinued minocycli ne due to stomach upset. - She will follow up with her dermatolog ist for alternative treatment. - Minocycline will be removed from her m edication profile. 2. Urinary Frequency - The patient's symptoms have improved a nd are now limited to nocturia before sleep, which is not life-disrupting. - She will be monitored and was advised to discuss these symptoms with her manipulative therapy specialist, as they may be related to perimenopause. 3. Hyperlipidemia - The patient's LDL cholesterol is mildl y elevated at 107. - Recommended dietary modification to re duce intake of processed foods and added sugars. - The goal is to lower her LDL to less t reaves 100 through lifestyle changes. 4. Fatigue - The patient's fatigue is likely multif actorial, related to lifestyle and possible perimenopausal changes. - She was advised to discuss this sympto m with her manipulative therapy specialist. Patient Instructions - You can stop taking the minocycline fo r your skin. - Please follow up with your dermatologi st for your facial rash. - Discuss your urinary symptoms and feel ings of tiredness with your JAVA ENGINEER doctor at your next appointment. - To help lower your cholesterol, try to make small improvements to your diet, such as reducing processed foods and added sugars. - Your thyroid is healthy, and no treatm ent is needed. - Your first screening colonoscopy is re commended when you turn 47. - Plan to return for your next physical exam in one year. - If you need to be seen sooner for any reason, please send a message through the patient portal rather than calling the office. Consent Patient was informed and verbally consented to the use of an ambient scribe for clinic note documentation during this visit. [facility] Medical History (Updated 11/19/25 @ 14:52 [facility] Hx of mammogram (~2024) No pertinent family history No pertinent past medical history Surgical History (Updated 09/25/25 @ 10:40 by Francesco Schofield MA) Previous section Social History (Updated 09/25/25 @ 10:39 by Francesco Schofield MA) Household Members: Spouse and Children Both parents involved: No Caregiver staying overnight: No Housing: House Are you a primary animal daycare provider to a significant other at home: Yes Do you presently have visiting nurse or other home services: No 75 years or older and lives alone: No Alcohol intake: current Alcohol intake frequency: a few times a month Patient Tobacco Use Status: Never used Tobacco e-Cigarette/Vaping Use: Never Used Second Hand Smoke Exposure: No service: No Current occupational status: employed Current occupation: sales Current occupational exposures/hazards: No Cognitive needs: No Hearing needs: No Vision needs: No Questionnaire Thrive Questionnaire Date Thrive assessed: 09/22/25 I am a: Patient What is your living situation today?: I have a steady place to live Within the past 12 months, did the food you bought not last and you didn't have the money to get more?: Never true Within the past 12 months, did you worry whether your food would run out before you got money to buy more?: Never true Do you have trouble paying for medicines?: No Do you have trouble getting transportation to medical appointments?: No Do you have trouble paying your heating and electricity bill?: No Do you have trouble taking care of your child, family member or friend?: No Do you have trouble with day-to-day activities such as bathing, preparing meals, shopping, managing finances, etc.?: No Are you currently unemployed and looking for a job?: No Are you interested in more education?: No Currently or been in a relationship where the following occur: No concerns reported THRIVE Score: 0 TOD-7 AMB Questionnaire TOD-7 Date TOD - 7 assessed: 09/25/25 Source: Developed by Drs. Scar Berg, Emeli Ruggiero, Deven Cole and colleagues, with an educational jaiden from [employer]. Physical exam (Primary Care) Vital Signs: Last Vital Signs Temp 97.3 F 11/19/25 13:24 Pulse 66 11/19/25 13:24 Resp 12 11/19/25 13:24 BP 98/66 11/19/25 13:24 Pulse Ox 99 11/19/25 13:24 Oxygen Delivery Method Room Air 11/19/25 13:24 BMI result Body Mass Index 23.1 Tobacco/Smoking Status: Tobacco use Status Tobacco use date assessed 11/19/25 11/19/25 13:26 Patient Tobacco Use Status Never used Tobacco 11/19/25 13:22 e-Cigarette/Vaping Use Never Used 11/19/25 13:22 Thrive Assessment: Date of Thrive Assessment Date Thrive assessed 09/22/25 11/19/25 13:22 Currently or been in a relationship where the following occur: No concerns reported Coding Level of Care Code Est Pt Prev Care 40-64y(36200) Add On Preventative Visit Only Diagnoses Adult general medical exam Z00.00 Assessment & Plan Assessment & Plan (1) Adult general medical exam: Onset Date: ~11/19/25 Code(s): Z00.00 - Encounter for general adult medical examination without abnormal findings Category: Medical Plan . Medications: Discontinued minocycline Discontinued Reason: Patient Refused 50 mg PO DAILY 90 caps 0RF Patient Instructions: Health screenings for women You should visit your health care provider from time to time, even if you are healthy. The purpose of these visits is to: Screen for medical issues Assess your risk for future medical problems Encourage a healthy lifestyle Update vaccinations and other preventive care services Help you get to know your provider in case of an illness Information Even if you feel fine, you should still see your provider for regular checkups. These visits can help you avoid problems in the future. For example, the only way to find out if you have high blood pressure is to have it checked regularly. High blood sugar and high cholesterol levels also may not have any symptoms in the early stages. A simple blood test can check for these conditions. There are specific times when you should see your provider or receive specific health screenings. The [place] Preventive Services Task Force publishes a list of recommended screenings. Below are screening guidelines for women ages 18 to 39. BLOOD PRESSURE SCREENING Your blood pressure should be checked at least once every 3 to 5 years if: Your blood pressure is in the normal range (top number less than 120 mm Hg and bottom number less than 80 mm Hg) You don't have risk factors for high blood pressure Ask your provider if you need your blood pressure checked more often if: The top number is 120 to 129 mm Hg or the bottom number is 70 to 79 mm Hg You have diabetes, heart disease, kidney problems, are overweight, or have certain other health conditions You have a first-degree relative with high blood pressure You are Black You had high blood pressure during a If the top number is 130 mm Hg or greater or the bottom number is 80 mm Hg or greater, this is considered stage 1 hypertension. Schedule an appointment with your provider to learn how you can reduce your blood pressure. Watch for blood pressure screenings in your area. Ask your provider if you can stop in to have your blood pressure checked. BREAST CANCER SCREENING Experts do not agree about the benefits of breast self-exams in finding breast cancer or saving lives. Talk to your provider about what is best for you. A screening mammogram is not recommended for most women under age 40. Your provider may discuss and recommend mammograms, MRI scans, or ultrasounds if you have an increased risk for breast cancer, such as: A mother or sister who had breast cancer at a young age (most often starting screening earlier than the age the close relative was diagnosed) You carry a high-risk genetic marker CERVICAL CANCER SCREENING Cervical cancer screening should start at age 21 years unless your provider advises otherwise. After the first test: Women ages 21 through 29 should have a Pap test every 3 years. Exoprts do not agree on whether HPV testing is recommended for this age group. Women ages 30 through 65 should be screened with either a Pap test every 3 years or the HPV test every 5 years or both tests every 5 years (called cotesting ). Women who have been treated for precancer (cervical dysplasia) should continue to have Pap tests for 20 years after treatment or until age 65, whichever is longer. If you have had your uterus and cervix removed (total hysterectomy), and you have not been diagnosed with cervical cancer or precancer (high grade cervical neoplasia), you do not need cervical cancer screening. CHOLESTEROL SCREENING Cholesterol screening should begin at: Age 45 for women with no known risk factors for coronary heart disease Age 20 for women with known risk factors for coronary heart disease Repeat cholesterol screening should take place: Every 5 years for women with normal cholesterol levels More often if changes occur in lifestyle (including weight gain and diet) More often if you have diabetes, heart disease, kidney problems, or certain other conditions DIABETES SCREENING You should be screened for diabetes starting at age 35 and then repeated every 3 years if you have no risk factors for diabetes. Screening may need to start earlier and be repeated more often if you have other risk factors for diabetes, such as: You have a first degree relative with diabetes. You are overweight or have obesity. You have high blood pressure, prediabetes, or a history of heart disease. Screening for diabetes should be done if you are planning to become and you are overweight and have other risk factors such as high blood pressure. DENTAL EXAM Go to the dentist once or twice every year for an exam and cleaning. Your dentist will evaluate if you need more frequent visits. EYE EXAM Have an eye exam every 5 to 10 years before age 40. If you have vision problems, have an eye exam every 2 years or more often if recommended by your provider. You should have an eye exam that includes an examination of your retina (back of your eye) at least every year if you have diabetes. IMMUNIZATIONS Commonly needed vaccines include: Flu shot: get one every year. COVID-19 vaccine: ask your provider what is best for you. Tetanus-diphtheria and acellular pertussis (Tdap) vaccine: have one at or after age 19 as one of your tetanus-diphtheria vaccines if you did not receive it as an adolescent. Tetanus-diphtheria: have a booster (or Tdap) every 10 years. Varicella vaccine: receive 2 doses if you never had chickenpox or the varicella vaccine. Hepatitis B vaccine: receive 2, 3, or 4 doses, depending on your exact circumstances. Measles, mumps, and rubella (MMR) vaccine: receive 1 to 2 doses if you are not already immune to MMR. Your provider can tell you if you are immune. Ask your provider about the human papillomavirus (HPV) vaccine if: You have not received the HPV vaccine in the past You have not completed the full vaccine series (you should catch up on this shot) Ask your provider if you should receive other immunizations if you have certain health problems that increase your risk for some diseases such as pneumonia. INFECTIOUS DISEASE SCREENING Women who are sexually active should be screened for chlamydia and gonorrhea up until age 25. Women 25 years and older should be screened for chlamydia and gonorrhea if at high risk. Screening for hepatitis C: All adults ages 18 to 79 should get a one-time test for hepatitis C. people should be screened at every . Screening for human immunodeficiency virus (HIV): All people ages 15 to 65 should get a one-time test for HIV. Depending on your lifestyle and medical history, you may also need to be screened for infections such as syphilis and HIV, as well as other infections. PHYSICAL EXAM All adults should visit their provider from time to time, even if they are healthy. The purpose of these visits is to: Screen for disease Assess your risk of future medical problems Encourage a healthy lifestyle Update your vaccinations and other preventive care services Maintain a relationship with a provider in case of an illness Your height, weight, and BMI should be checked at every exam. During your exam, your provider may ask you about: Depression and anxiety Diet and exercise Alcohol and tobacco use Safety issues, such as using seat belts, smoke detectors, and intimate partner violence Your medicines and risk for interactions SKIN SELF-EXAM Your provider may check your skin for signs of skin cancer, especially if you're at high risk, such as if you: Have had skin cancer before Have close relatives with skin cancer Have a weakened immune system OTHER SCREENING Talk with your provider about colon cancer screening if you have a strong family history of colon cancer or polyps, or if you have had inflammatory bowel disease or polyps yourself. Routine bone density screening of women under 40 is not recommended.
[2025-11-19 13:24] VITALS: BP 98/66; PULSE 66; RESP 12; TEMP 36.3; O2SAT 99; BMI 23.1
--- OUTSIDE RECORDS SUMMARY | 2025-11-19 16:33 | XMS_ITS | Clinical Summary ---
Author Organization [facility] Prior to 04/28/[address] [place] [id number] Care Team Providers Care Eight Arm Operator Name Role Phone Giovany Russell DO Primary [...] age to complete this topic Care Teams Eight Arm Operator Relationship Specialty Start Date End Date Giovany Russell DO [facility] [address] [place] [address] PCP - General Drying Tumbler Operator 11/27/22
== END 2025-11-19 14:13 | disposition home or self-care (01) ==
LOC: HO.HMCFM 13:10
PROVIDERS: PCP Nurse Practitioner Family; Visit Provider Nurse Practitioner Family
DX: Z00.00 Encounter for general adult medical examination without abnormal findings (principal)